=== PATIENT | female | born 1995 | race Caucasian/White ===

== ENCOUNTER 2017-10-07 12:47 | Emergency (ER) | payer OTHER ==
[2017-10-07 12:53] VITALS: TEMP 98.4
[2017-10-07] MEDS ORDERED: NS 1,000 ML IV ONE (14:09)
[2017-10-07] MEDS ORDERED: DEXAMETHASONE 4 MG/ML VIAL IVP ONE (14:09)
[2017-10-07] MEDS ORDERED: METOCLOPRAMIDE 10 MG/2 ML VIAL IVP ONE (14:09)
[2017-10-07] MEDS ORDERED: KETOROLAC 15 MG/1 ML SDV IVP/IM ONE (14:09)
[2017-10-07] MEDS ORDERED: LORazepam 2 MG/ML INJ IVP ONE (14:10)
--- NOTE | 2017-10-07 14:13 | EDPHY ---
H & P Stated Complaint: ongoing migraine for 3 days. Time Seen by Provider: 10/07/17 13:51 HPI/ROS: CHIEF COMPLAINT: Right-sided headache x3 days HISTORY OF PRESENT ILLNESS: 22-year-old female history of chronic headaches, evaluated by her PCP in the past for similar, complaining of 3 days of her usual headache, started gradually 3 days ago on the retro-orbital region, non thunderclap, not worst headache of life. Positive photophobia, aura, nausea and vomiting. Now only nausea. No gait instability. No head injury. No neck pain. No neck manipulation. Took an Uber to the ER> PRIMARY CARE PROVIDER: [employer] [facility] REVIEW OF SYSTEMS: A ten point review of systems was performed and is negative with the exception of the items mentioned in the HPI PAST MEDICAL & SURGICAL HISTORY: Chronic headache SOCIAL HISTORY: Student nonsmoker FAMILY HISTORY: Mother with history of chronic migraines PHYSICAL EXAM (Prior to examination, patient consented to physical exam, hands were washed and my usual and customary physical exam procedures followed) 1) GENERAL: Well-developed, well-nourished, alert and oriented. Appears uncomfortable sitting in a darkened room. 2) HEAD: Normocephalic, atraumatic 3) HEENT: Pupils equal, round, reactive to light bilaterally. Sclera anicteric. Funduscopic examination grossly unremarkable. No orbital bruit. Nasopharynx, oropharynx, clear, no lesions positive photophobia. Ears bilaterally with normal tympanic membranes. 4) NECK: Full range of motion, no meningeal signs. No carotid bruit 5) LUNGS: Clear auscultation bilaterally, no wheezes, no rhonchi, no retractions. 6) HEART: Regular rate and rhythm, no murmur, no heave, no gallop. 7) ABDOMEN: No guarding, no rebound, no focal tenderness, negative McBurney's, negative Silva's, negative Rovsing's, negative peritoneal sign, 8) MUSCULOSKELETAL: Moving all extremities, no focal areas of tenderness, no obvious trauma. No peripheral edema or discoloration. 9) BACK: No CVA tenderness, no midline vertebral tenderness, no fluctuance, no step-off, no obvious trauma, no visual or palpable abnormality. 10) SKIN: No rash, no petechiae. 11) Psychiatric: Patient is oriented X 3, there is no agitation. 12) NEURO: Awake, alert, and oriented to person, place and time. Answers questions appropriately. There were no obvious focal neurologic abnormalities. No cerebellar dysfunction. Normal steady gait. Upper and lower extremities bilaterally with strength 5 / 5, reflexes 2+. DIFFERENTIAL DIAGNOSIS: In no particular order, including but not limited to subarachnoid hemorrhage, migraine headache, tension headache and infectious causes such as meningitis, pharyngitis and sinusitis. The patient understands that this diagnosis is provisional and can never be 100% accurate. Usual and customary warnings were given concerning the clinical impression and all the patient's questions were answered. The patient was instructed to return to the emergency department should her symptoms worsen or return, or develop any new symptoms, otherwise to followup as directed in discharge instructions. This is a partial list of diagnoses considered. These considerations are based on history, physical exam, past history and reassessment. - Personal History LMP (Females 10-55): 8-14 Days Ago Current Tetanus Diphtheria and Acellular Pertussis (TDAP): Yes - Medical/Surgical History Hx Asthma: No Hx Chronic Respiratory Disease: No Hx Diabetes: No Hx Cardiac Disease: No Hx Renal Disease: No Hx Cirrhosis: No Hx Alcoholism: No Hx HIV/AIDS: No Hx Splenectomy or Spleen Trauma: No Other PMH: Migraines. Sinus infections. - Social History Smoking Status: Never smoked Constitutional: Initial Vital Signs Temperature (C) 36.9 C 10/07/17 12:49 Heart Rate 86 10/07/17 12:49 Respiratory Rate 16 10/07/17 12:49 Blood Pressure 114/72 10/07/17 12:49 O2 Sat (%) 98 10/07/17 12:49 O2 Delivery Mode Room Air Allergies/Adverse Reactions: No Known Allergies Allergy (Unverified 10/07/17 12:53) Home Medications: Medication Instructions Recorded NK [No Known Home Meds] 10/07/17 Medical Decision Making ED Course/Re-evaluation: 2:12 p.m.: Will hold on imaging at this time as I do not think it is emergently indicated with history of chronic headache, headache which feels like her usual headache, non thunderclap, has been evaluated for headaches in the past. Will administer medications and re-evaluate.Care of patient under supervision of primary supervising physician Dr Meredith . 3:42 p.m.: Re-evaluation, she is sleeping. Plan will be discharge.I think that subarachnoid hemorrhage, intracranial mass, malignancy, less than likely in this patient at this time. I do not think that the benefits of CT imaging, lumbar puncture, outweigh the risks in this patient. Usual and customary headache precautions and instructions provided. - Data Points Medications Given: Discontinued Medications Dexamethasone (Decadron Injection) 8 mg IVP EDNOW ONE Stop: 10/07/17 14:10 Last Admin: 10/07/17 14:32 Dose: 8 mg Sodium Chloride (Ns) 1,000 mls @ 3,000 mls/hr IV EDNOW ONE Stop: 10/07/17 14:28 Last Admin: 10/07/17 14:29 Dose: 1,000 mls Ketorolac Tromethamine (Toradol) 15 mg IVP/IM EDNOW ONE Stop: 10/07/17 14:10 Last Admin: 10/07/17 14:31 Dose: 15 mg Lorazepam (Ativan Injection) 1 mg IVP EDNOW ONE Stop: 10/07/17 14:11 Last Admin: 10/07/17 14:30 Dose: 1 mg Metoclopramide HCl (Reglan Injection) 10 mg IVP EDNOW ONE Stop: 10/07/17 14:10 Last Admin: 10/07/17 14:30 Dose: 10 mg Departure - Departure Disposition: Home, Routine, Self-Care Clinical Impression: Headache Condition: Good Instructions: Acute Headache (ED) Additional Instructions: WE CANNOT ALWAYS FIND THE EXACT CAUSE OF YOUR SYMPTOMS DURING YOUR VISIT TO THE ED. PLEASE FOLLOW UP WITH YOUR DOCTOR WITHIN 24 HOURS TO BE RECHECKED. RETURN TO THE ED IMMEDIATELY IF YOUR HEADACHE WORSENS, IF YOU DEVELOP A FEVER, NECK PAIN OR NECK STIFFNESS, OR IF YOU BECOME CONFUSED OR ABNORMALLY DROWSY. Referrals: Edwin Redding DO [Medical Doctor] - 5-7 days, call for appt. (Dr. Redding is a neurologist) Stand Alone Forms: School Excuse
[2017-10-07 16:02] VITALS: BP 97/60; PULSE 50; RESP 14; O2SAT 96
== END 2017-10-07 16:00 | disposition home or self-care (01) ==
DX: R51 Headache (principal); R11.2 Nausea with vomiting, unspecified
CPT/HCPCS: 96374; J1100; J1885; J2060; J2765

== ENCOUNTER → 2019-04-06 | Outpatient (CLI) | payer OTHER | LOC: BMCIMAGING 15:58 | PROVIDERS: ATTEND Family Medicine | DX: S99.911A Unspecified injury of right ankle, initial encounter (principal) ==